=== PATIENT | male | born 1990 | race Two or more races ===

== ENCOUNTER 2018-06-28 08:22 | Emergency (ER) | payer OTHER ==
--- NOTE | 2018-06-28 08:29 | PDOC ---
History of Present Illness - General Chief Complaint: Shortness of Breath Stated Complaint: COLD SYMPTOMS, CHEST PAIN Time Seen by Provider: 06/28/18 08:29 - History of Present Illness Initial Comments: 06/28/18 08:44 The patient is a 27 year old male with no significant PMH who presents for evaluation of cough, body aches, and congestion. The patient reports a 1 week history of cough with associated headache, body aches, SOB, and congestion. He states that he presented to an outside ED 1 week ago and was prescribed medication for the cough and pepcid, but notes that he has had continued symptoms since then prompting his presentation to the ED for further evaluation. He otherwise denies fevers, chills, chest pain, nausea, vomiting, abdominal pain, or changes with urination or bowel movements. Past History - Past Medical History Allergies/Adverse Reactions: Allergies Allergy/AdvReac Type Severity Reaction Status Date / Time No Known Allergies Allergy Verified 06/28/18 08:29 Home Medications: Ambulatory Orders Albuterol Sulfate Inhaler - [Ventolin Hfa Inhaler -] 1 - 2 inh PO Q4H PRN Azithromycin [Zithromax 250mg Tablets -] 250 mg PO UTDICT #6 tab 06/28/18 Benzonatate 100 mg PO BID PRN 06/28/18 Benzonatate [Tessalon Pearls -] 100 mg PO TID #21 capsule 06/28/18 Famotidine [Pepcid] 20 mg PO DAILY 06/28/18 COPD: No - Suicide/Smoking/Psychosocial Hx Smoking History: Former smoker Have you smoked in the past 12 months: No Information on smoking cessation initiated: No Review of Systems - Review of Systems Comments:: 06/28/18 08:47 Constitutional: Body aches. No fevers, chills, HEENT: Nasal Congestion. No Rhinorrhea, visual changes Cardiovascular: No chest pain, syncope, palpitations, lightheadedness Respiratory: Cough, SOB. No Hemoptysis, Gastrointestinal: No Abdominal pain, Nausea, Vomiting, Constipation, Diarrhea, Melena Genitourinary: No Dysuria, Frequency, Urgency, Hesitancy, Hematuria, Flank pain Musculoskeletal: No Myalgia, arthralgia Skin: No rashes, itching, bruising, pallor Neurologic: Headache. No Dizziness, Numbness, Weakness, or Tingling Psychiatric: No Hallucinations. No SI or HI *Physical Exam - Physical Exam Comments: 06/28/18 08:47 General Appearance: Nourished. No Apparent Distress HEENT: No Pharyngeal Erythema, Tonsillar Exudate, Tonsillar Erythema Neck: No Cervical Lymphadenopathy Respiratory/Chest: Lungs Clear, Normal Breath Sounds. No Crackles, Rales, Rhonchi, Wheezing Cardiovascular: Regular Rhythm, Regular Rate. No Murmur, Gallops, Rubs Gastrointestinal/Abdominal: Normal Bowel Sounds, Soft. No Guarding, Rebound, Tenderness Musculoskeletal: No CVA Tenderness Extremity: Normal Capillary Refill Integumentary: Normal Color, Dry, Warm Neurologic: Fully Oriented, Alert, Normal Mood/Affect, Normal Response, ED Treatment Course - LABORATORY CBC & Chemistry Diagram: 06/28/18 09:00 06/28/18 09:00 Medical Decision Making - Medical Decision Making 06/28/18 08:48 The patient is a 27 year old male with no significant PMH who presents for evaluation of cough, body aches, and congestion. Differential includes but is not limited to: Viral Syndrome, Pneumonia, Influenza, Infectious, metabolic derangement. Given the patient's history and physical exam, we will obtain a cbc, cmp, chest plain film, influenza swab to evaluate further. We will treat with iv fluids, tylenol, toradol, duonebs and continue to monitor and reassess while here in the ED. 06/28/18 10:19 CBC demonstrates an elevated wbc to 19. CMP is unremarkable. Chest plain film is unremarkable as read by our radiologist. The patient refused rectal temp but did have an elevated oral temp. We will treat the patient as a presumed pneumonia. We are comfortable discharging the patient home with azithromycin with primary care provider follow up. We discussed the results, plan, and return precautions with the patient who voiced understanding and is agreeable with the plan. *DC/Admit/Observation/Transfer Diagnosis at time of Disposition: Pneumonia Qualifiers: Pneumonia type: due to unspecified organism Laterality: unspecified laterality Lung location: unspecified part of lung Qualified Code(s): J18.9 - Pneumonia, unspecified organism - Discharge Dispostion Disposition: HOME Condition at time of disposition: Stable Decision to Admit order: No - Prescriptions Prescriptions: Azithromycin [Zithromax 250mg Tablets -] 250 mg PO UTDICT #6 tab Benzonatate [Tessalon Pearls -] 100 mg PO TID #21 capsule - Referrals Referrals: Xander Perera MD [Staff Physician] - - Patient Instructions Printed Discharge Instructions: DI for Pneumonia -- Adult Additional Instructions: Please return to the ER if you experience concerning or worsening symptoms including worsening difficulty breathing, weakness, or chest pain. Your lab results and exam are concerning for a pneumonia. We have sent a prescription to your pharmacy for antibiotics that you should take as directed. Please keep your follow up appointment with your primary care provider on Sunday07/01/18 to discuss your ER visit and further management of your symptoms. - Post Discharge Activity
[2018-06-28 08:32] VITALS: BMI 39.9
[2018-06-28] MEDS ORDERED: ACETAMINOPHEN 1000 MG/100 ML VIAL (NON FORMULARY) IVPB ONE (08:35)
[2018-06-28] MEDS ORDERED: SODIUM CHLORIDE 1,000 ML IV STA (08:35)
[2018-06-28] MEDS ORDERED: ALBUTEROL SO4 2.5/IPRATROPIUM 0.5 INH SOL 3 ML VIAL.NEB. NEB ONE ×2 (08:39→08:42)
[2018-06-28] MEDS ORDERED: KETOROLAC TROMETHAMINE 30 MG/1 ML VIAL IVPUSH ONE (08:39)
[2018-06-28] MEDS ORDERED: ACETAMINOPHEN INJECTION 100 ML IVPB ONE (08:42)
[2018-06-28] MEDS ORDERED: KETOROLAC TROMETHAMINE 30 MG/1 ML VIAL ONE (08:42)
[2018-06-28 09:10] LABS: BASO % 0.7 % (0-2.0); EOS % 0.2 % (0-4.5); HEMATOCRIT 44.8 % (35.4-49); HEMOGLOBIN 15.6 GM/dL (11.7-16.9); LYMPH % 13.3 % (8-40); MCH 29.6 pg (25.7-33.7); MCHC 34.9 g/dl (32.0-35.9); MEAN CELL VOLUME 84.7 fl (80-96); MEAN PLT VOLUME 9.2 fl (7.5-11.1); MONO % 9.5 % (3.8-10.2); NEUT % 76.3 % (42.8-82.8); PLATELET COUNT 305 K/MM3 (134-434); RBC 5.28 M/mm3 (4.00-5.60); WHITE BLOOD COUNT 19.2 K/mm3 (4.0-10.0)
--- NOTE | 2018-06-28 09:27 | PDOC ---
Attending Attestation - Resident Resident Name: Caleb Baez - ED Attending Attestation I have performed the following: I have examined & evaluated the patient, The case was reviewed & discussed with the resident, I agree w/resident's findings & plan - HPI HPI: 06/28/18 09:27 27 year old male with no significant PMH who presents for evaluation of productive cough, body aches, and congestion x 1 week. prior ED visit for similar sx, rx'd pepcid and albuterol, minimal relief. +subjective fevers and chills. +sick contacts including daughter with asthma and URI sx. 06/28/18 09:36 06/28/18 10:21 - Physicial Exam PE: 06/28/18 10:20 NAD, well appearing, PERRL, EOMI, MMM, nl conjunctiva, anicteric; neck supple. faint crackles in bases, worse in right lower lung field. +tachy. abdomen soft nontender. MEJIA x4, no focal neuro deficits. No peripheral edema. normal color for ethnicity, WWP. - Medical Decision Making 06/28/18 10:20 See HPI for details Vital signs reviewed, +fever and tachycardia Prior notes reviewed, including admissions, discharges and consultations. laboratory results and imaging reviewed, basic labs and lytes wnl, notable for + leukocytosis of 19K CXR read as clear, but clinically treat as pna with fever and unremitting sx, + productive cough. ED course: unremarkable, +febrile here, given analgesia and antipyretics. IVF hydration and duonebs for cough. VS improved, HR improved, fevers noted but nontoxic appearing Rx Zpak for pna, tessalon perles or OTC cough drops with menthol for cough suppression, can also use mucinex as needed work note, respiratory precautions, hand hygiene, fluids and supportive care advised. Dispo: I discussed the physical exam findings, ancillary test results and final diagnoses with the patient. I answered all of the patient's questions. The patient was satisfied with the care received and felt comfortable with the discharge plan and treatment plan. The patient will return to the Emergency Department with any new, persistent or worsening symptoms. 06/28/18 10:21 06/28/18 10:22
[2018-06-28 09:48] LABS: ALBUMIN 4.1 g/dl (3.4-5.0); ALK PHOS 83 U/L (45-117); ANION GAP 8 MMOL/L (8-16); BILIRUBIN,TOTAL 0.6 mg/dL (0.2-1); BLOOD UREA NITROGEN 10 mg/dL (7-18); CALCIUM 9.1 mg/dL (8.5-10.1); CHLORIDE 104 mmol/L (98-107); CO2 26 mmol/L (21-32); CREATININE 1.1 mg/dL (0.55-1.3); GLUCOSE,RANDOM 99 mg/dL (74-106); POTASSIUM 4.5 mmol/L (3.5-5.1); SGOT/AST 25 U/L (15-37); SGPT/ALT 39 U/L (13-61); SODIUM 138 mmol/L (136-145); TOT PROT 8.2 g/dl (6.4-8.2)
[2018-06-28 10:09] VITALS: BP 149/71; PULSE 95; TEMP 100.1
== END 2018-06-28 10:39 | disposition home or self-care (01) ==
LOC: JER 08:22
PROC: 3E033NZ Introduction of Analgesics, Hypnotics, Sedatives into Peripheral Vein, Percutaneous Approach (ICD-10-PCS; principal; 2018-06-28)
PROC: 3E0F7GC Introduction of Other Therapeutic Substance into Respiratory Tract, Via Natural or Artificial Opening (ICD-10-PCS; 2018-06-28)
PROC: 3E0333Z Introduction of Anti-inflammatory into Peripheral Vein, Percutaneous Approach (ICD-10-PCS; 2018-06-28)
PROC: 3E0337Z Introduction of Electrolytic and Water Balance Substance into Peripheral Vein, Percutaneous Approach (ICD-10-PCS; 2018-06-28)
DX: J18.9 Pneumonia, unspecified organism (principal)
CPT/HCPCS: 36415; 71046-TC-FY; 80053; 85025; 94640; 96361; 96374; 96375; 99284-25; J0131; J7030

== ENCOUNTER 2018-12-03 10:57 | Emergency (ER) | payer OTHER ==
[2018-12-03 11:05] VITALS: BP 158/76; PULSE 116; TEMP 98.1; BMI 36.0
--- NOTE | 2018-12-03 11:26 | PDOC ---
History of Present Illness - General Chief Complaint: Sore Throat Stated Complaint: COUGHING Time Seen by Provider: 12/03/18 11:18 - History of Present Illness Initial Comments: 12/03/18 11:26 27-year-old male without comorbidities presents for evaluation of one month of nasal congestion and cough a sore throat which started yesterday but has improved today. Systemic symptoms. Past History - Past Medical History Allergies/Adverse Reactions: Allergies Allergy/AdvReac Type Severity Reaction Status Date / Time No Known Allergies Allergy Verified 12/03/18 11:02 Home Medications: Ambulatory Orders Albuterol Sulfate Inhaler - [Ventolin Hfa Inhaler -] 1 - 2 inh PO Q4H PRN Azithromycin [Zithromax 250mg Tablets -] 250 mg PO UTDICT #6 tab 06/28/18 Benzonatate 100 mg PO BID PRN 06/28/18 Benzonatate [Tessalon Pearls -] 100 mg PO TID #21 capsule 06/28/18 Famotidine [Pepcid] 20 mg PO DAILY 06/28/18 Budesonide [Rhinocort Allergy] 1 spray NS ONCE #1 spray.pump 12/03/18 Cetirizine HCl/Pseudoephedrine [Zyrtec-D Tablet] 1 each PO DAILY #30 tab.er.12h 12/03/18 COPD: No Disorders: (denies) - Immunization History Immunization Up to Date: (unknown) - Suicide/Smoking/Psychosocial Hx Smoking History: Never smoked Have you smoked in the past 12 months: No Hx Alcohol Use: No Drug/Substance Use Hx: No Review of Systems - Review of Systems Constitutional: No: Fever HEENTM: Yes: Nose Congestion Respiratory: Yes: Cough *Physical Exam - Vital Signs Last Vital Signs Temp Pulse Resp BP Pulse Ox 98.1 F 116 H 18 158/76 95 12/03/18 11:02 12/03/18 11:02 12/03/18 11:02 12/03/18 11:02 12/03/18 11:02 - Physical Exam Comments: 12/03/18 11:26 HEAD: NC/AT EYES: Conjuntiva clear Ears: Canals and TM's normal NOSE: No d/c THROAT: Moist mucous membrances, oral pharanx clear, uvula midline NECK: Supple without adenopathy CARDIAC: S1 S2 LUNGS: CTA Full and Equal breath sounds ABDOMEN: Soft NT ND MS: Full ROM in all joints without edema NEUROLOGIC: No gross sensory or motor deficits, NVID SKIN: Normal color and temperature no lesions or rashes Medical Decision Making - Medical Decision Making 12/03/18 11:25 History and examination consistent with seasonal ALLERGIES. I do not believe this is an infectious process. We'll treat with antihistamine and corticosteroid nasal spray and have him follow-up with ENT. *DC/Admit/Observation/Transfer Diagnosis at time of Disposition: Seasonal allergic rhinitis - Discharge Dispostion Disposition: HOME Condition at time of disposition: Stable Decision to Admit order: No - Prescriptions Prescriptions: Budesonide [Rhinocort Allergy] 1 spray NS ONCE #1 spray.pump Cetirizine HCl/Pseudoephedrine [Zyrtec-D Tablet] 1 each PO DAILY #30 tab.er.12h - Referrals Referrals: Barry Turk MD [Staff Physician] - - Patient Instructions Printed Discharge Instructions: Allergic Rhinitis Additional Instructions: Please use a nasal spray and oral medication as directed. Follow-up with ear nose and throat doctor in 1-2 days. Return to the emergency room for worsening symptoms. - Post Discharge Activity
== END 2018-12-03 11:48 | disposition home or self-care (01) ==
LOC: JERFT 10:57
DX: J30.2 Other seasonal allergic rhinitis (principal)
CPT/HCPCS: 99281-25